=== PATIENT | male | born 1970 ===

== ENCOUNTER 2018-11-21 11:32 | Emergency (ER) | payer SELFPAY ==
[2018-11-21 11:47] VITALS: BP 129/86; PULSE 82; RESP 18; TEMP 98.5; O2SAT 98
--- NOTE | 2018-11-21 11:53 | ED PDOC ---
Arrival/HPI - General Chief Complaint: Lower Extremity Problem/Injury Time Seen by Provider: 11/21/18 11:35 Historian: Patient - History of Present Illness Narrative History of Present Illness (Text): 11/21/18 11:49 48 y/o male, no significant pmh, nkda, c/o lt. hip pain radiating to the LLE x 3 days with no fall or trauma. Aching pain, associated with stiffness, no numbness or tingling, no headache or night sweat, no fever or chills, no lower back pain, no other medical or psychological complaints. Past Medical History - Provider Review Nursing Documentation Reviewed: Yes - Infectious Disease Hx of Infectious Diseases: None - Cardiac Hx Cardiac Disorders: No - Psychiatric Hx Substance Use: No - Surgical History Hx Orthopedic Surgery: Yes - Anesthesia Hx Anesthesia: Yes Hx Anesthesia Reactions: No Family/Social History - Physician Review Nursing Documentation Reviewed: Yes Family/Social History: Unknown Family HX Smoking Status: Current Some Days Smoker Hx Alcohol Use: Yes Frequency of alcohol use: Socially Hx Substance Use: No Allergies/Home Meds Allergies/Adverse Reactions: Allergies No Known Allergies Allergy (Verified 11/21/18 11:46) Home Medications: Home Meds Medication Instructions Recorded Confirmed No Known Home Med 11/21/18 11/21/18 Review of Systems - Review of Systems Constitutional: absent: Fatigue, Fevers Eyes: absent: Vision Changes ENT: absent: Hearing Changes Respiratory: absent: SOB, Cough Cardiovascular: absent: Chest Pain, Syncope Gastrointestinal: absent: Abdominal Pain, Diarrhea, Nausea, Vomiting Musculoskeletal: Arthralgias. absent: Back Pain, Neck Pain, Joint Swelling, Myalgias Skin: absent: Rash, Pruritis Neurological: absent: Headache, Dizziness Psychiatric: absent: Anxiety, Depression, Suicidal Ideation Physical Exam Vital Signs Reviewed: Yes Vital Signs Temp Pulse Resp BP Pulse Ox 11/21/18 11:41 98.5 F 82 18 129/86 98 Temperature: Afebrile Blood Pressure: Normal Pulse: Regular Respiratory Rate: Normal Appearance: Positive for: Well-Appearing, Non-Toxic, Comfortable Pain Distress: Moderate Mental Status: Positive for: Alert and Oriented X 3 - Systems Exam Head: Present: Atraumatic, Normocephalic Pupils: Present: PERRL Extroacular Muscles: Present: EOMI Conjunctiva: Present: Normal Mouth: Present: Moist Mucous Membranes Neck: Present: Normal Range of Motion Respiratory/Chest: Present: Clear to Auscultation, Good Air Exchange. No: Respiratory Distress, Accessory Muscle Use Cardiovascular: Present: Regular Rate and Rhythm, Normal S1, S2. No: Murmurs Abdomen: No: Tenderness, Distention, Peritoneal Signs Back: Present: Normal Inspection, Other (SLR test is negative). No: CVA Tende rness, Midline Tenderness, Paraspinal Tenderness, Pain with Leg Raise, Decubitus Ulcer Upper Extremity: Present: Normal Inspection, Normal ROM, NORMAL PULSES, Neurovascularly Intact. No: Cyanosis, Edema, Tenderness, Swelling, Deformity Lower Extremity: Present: Normal Inspection, NORMAL PULSES, Normal ROM, Neurovascularly Intact, Capillary Refill < 2 s, Other (LLE: mild +ttp on the lateral hip region with no swelling or redness, no other tenderness or swelling, FROM without limitation, sensation intact, motor 5/5, +DPPT pulses, capillary refill< 2 seconds,neurovascular intact. ). No: Edema, Deformity Neurological: Present: GCS=15, CN II-XII Intact, Speech Normal Skin: Present: Warm, Dry, Normal Color. No: Rashes Psychiatric: Present: Alert, Oriented x 3, Normal Insight, Normal Concentration Medical Decision Making ED Course and Treatment: 11/21/18 12:04 -Toradol IM/valium -Lt. hip to visualized any bony abnormality to explained his pain. -LLE Venuous doppler to r/o dvt -Observe and reassess 11/21/18 12:30 -Pt. stated that he doesn't need all these test and refused lab works, only here to get nerve block for his pain. Pt. stated that he wants to leave. Pt. didn't stay for any further discussion, eloped from the ER when I return, didn't stay for full discussion or any against medical advice papers. Pt. will be placed as elopement without AMA. - RAD Interpretation Radiology Orders: -Lt. hip xray: -LLE Venuous doppler: as per preliminary report, [employer]linger Operator: Radiologist - PA / [employer]UM DRIER OPERATOR / Resident Statement / has reviewed & agrees with the documentation as recorded. Disposition/Present on Arrival - Present on Arrival Any Indicators Present on Arrival: No History of DVT/PE: No History of Uncontrolled Diabetes: No Urinary Catheter: No History of Decub. Ulcer: No History Surgical Site Infection Following: None - Disposition Have Diagnosis and Disposition been Completed?: Yes Diagnosis: Leg pain, Non-compliance Disposition: ELOPEMENT - ER ONLY Disposition Time: 12:32 Condition: STABLE Forms: [employer] (Hebrew)
== END 2018-11-21 12:29 | disposition left against medical advice (07) ==
LOC: ED 11:32
DX: M79.605 Pain in left leg (principal); Z91.19 Patient's noncompliance with other medical treatment and regimen
CPT/HCPCS: 96372; 99283; J1885